=== PATIENT | male | born 1975 | race Caucasian/White ===

== ENCOUNTER 2022-03-03 10:54 | Outpatient (CLI) | payer OTHER ==
--- NOTE | 2022-03-03 13:54 | XRay Report ---
CHEST 2 VIEWS INDICATION / CLINICAL INFORMATION: TB CLEARANCE. COMPARISON: None available. FINDINGS: SUPPORT DEVICES: None. HEART / MEDIASTINUM: No significant abnormality. LUNGS / PLEURA: No significant pulmonary or pleural abnormality. No pneumothorax. ADDITIONAL FINDINGS: Previous internal fixation of a right clavicle fracture is noted. Healed right a nterior second rib fracture is also noted. IMPRESSION: 1. No acute findings. No findings to suggest pulmonary tuberculosis. Signer Name: Ish Isabel Jr, MD Signed: 03/03/2022 1:49 PM Workstation Name: [id number]
== END 2022-03-03 10:55 | disposition home or self-care (01) ==
LOC: XRAY 10:54
PROVIDERS: ATTEND Psychiatry & Neurology Psychiatry
DX: A15.9 Respiratory tuberculosis unspecified (principal)
CPT/HCPCS: 71046